=== PATIENT | male | born 2000 | race Caucasian/White ===

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

== ENCOUNTER 2023-06-22 17:47 | Inpatient (IN) | payer MEDICAID, OTHER ==
[~2023-06-22] VITALS: Ht 172.7 cm; Wt 57.8 kg
[~2023-06-22 17:47] MED LIST changes: +ARIP10TA32 PO; -ARIP1TAB PO; +FLUT50SP17; -FLUTISP; -LORA-243; +LORA-243 PO
[2023-06-22 19:15] LABS: BASO # 0.1 10^3/uL (0.0-0.2); BASO % 0.5 % (0.0-1.0); EOS % 0.2 % (0.0-3.0); HEMATOCRIT 45.6 % (42.0-52.0); HEMOGLOBIN 15.4 g/dl (13.5-17.5); LYMPH # 1.7 10^3/uL (1.5-5.0); LYMPH % 17.5 % (24.0-44.0); MEAN CORPUSCULAR HEMOGLOBIN 30.8 pg (27.0-33.0); MEAN CORPUSCULAR HGB CONC 33.8 g/dl (32.0-36.5); MEAN CORPUSCULAR VOLUME 91.2 fl (80.0-96.0); MONO # 0.6 10^3/uL (0.0-0.8); MONO % 6.4 % (2.0-8.0); NEUTROPHILS # 7.4 10^3/uL (1.5-8.5); NEUTROPHILS % 75.2 % (36.0-66.0); PLATELET COUNT, AUTOMATED 235 10^3/uL (150-450); WHITE BLOOD COUNT 9.8 10^3/uL (4.0-10.0)
[2023-06-22 19:42] LABS: LIPASE 38 U/L (12-53)
[2023-06-22 19:45] LABS: ALBUMIN 4.5 G/DL (3.2-5.2); ALKALINE PHOSPHATASE 80 U/L (46-116); ALT/SGPT 25 U/L (7.0-40); AST/SGOT 16 U/L (<34); BILIRUBIN,DIRECT 0.3 MG/DL (<0.4); BILIRUBIN,TOTAL 0.9 MG/DL (0.3-1.2); BLOOD UREA NITROGEN 15 MG/DL (9-23); CALCIUM LEVEL 9.8 MG/DL (8.5-10.1); CARBON DIOXIDE LEVEL 32 MMOL/L (20-31); CHLORIDE LEVEL 100 MMOL/L (98-107); CREATININE FOR GFR 0.77 MG/DL (0.70-1.30); GLOMERULAR FILTRATION RATE > 60.0 (>60); GLUCOSE, FASTING 85 MG/DL (60-100); POTASSIUM SERUM 4.1 MMOL/L (3.5-5.1); SODIUM LEVEL 138 MMOL/L (136-145); TOTAL PROTEIN 8.2 G/DL (5.7-8.2)
[2023-06-22] MEDS ORDERED: ISOVUE-370 76% 100ML VIAL As Ordered ONE (23:28)
[2023-06-22 23:59] LABS: AMPHETAMINES LEVEL URINE NEGATIVE (NEGATIVE); BARBITURATES URINE NEGATIVE (NEGATIVE); METHADONE URINE NEGATIVE (NEGATIVE); OPIATES URINE NEGATIVE (NEGATIVE); PHENCYCLIDINE URINE NEGATIVE (NEGATIVE)
[2023-06-23 00:01] LABS: BENZODIAZEPINES URINE NEGATIVE (NEGATIVE); COCAINE METABOLITE URINE NEGATIVE (NEGATIVE)
[2023-06-23 00:02] LABS: ETHYL ALCOHOL (ETHANOL) < 0.003 % (0.000-0.010)
[2023-06-23 00:04] LABS: ACETAMINOPHEN LEVEL < 2.0 UG/ML (10.0-20.0); SALICYLATE LEVEL < 3.0 MG/DL (<30)
[2023-06-23 00:04] LABS: CANNABINOIDS URINE POSITIVE (NEGATIVE)
[2023-06-23 00:06] LABS: THYROID STIMULATING HORMONE 1.287 uIU/ML (0.55-4.78)
[2023-06-23] MEDS ORDERED: IBUPROFEN 400MG TAB PO PRN (09:10)
[2023-06-23] MEDS ORDERED: MOM 30ML SUSPENSION UDC PO PRN (09:10)
[2023-06-23] MEDS ORDERED: diphenhydrAMINE 25MG CAP PO PRN (09:10)
[2023-06-23] MEDS ORDERED: traZODone 50 MG TAB PO PRN (09:10)
[2023-06-23] MEDS ORDERED: MAALOX 30 ML SUSP *UDC PO PRN (09:10)
[2023-06-23] MEDS ORDERED: ACETAMINOPHEN TAB 650MG DOSE (2X325MG) PO PRN (09:10)
[2023-06-23 12:05] VITALS: BP 112/67; TEMP 97.7; O2SAT 98
[2023-06-23] MEDS ORDERED: ONDA4TAB6 SL (15:59)
[2023-06-23] MEDS ORDERED: PANT40TA29 PO (15:59)
[2023-06-23] MEDS ORDERED: HOME MED LIST COMPLETE! XX SCH (16:00)
[2023-06-24] MEDS: PANTOPRAZOLE 40MG TAB (PROTONIX) PO SCH (09:00)
[2023-06-24] MEDS ORDERED: LORATADINE 10 MG TAB PO PRN (09:00)
[2023-06-24 18:25] VITALS: BP 105/60; TEMP 97.6; O2SAT 100
[2023-06-25] MEDS: PANTOPRAZOLE 40MG TAB (PROTONIX) PO SCH (09:00)
[2023-06-25 18:14] VITALS: BP 108/56; TEMP 98.4; O2SAT 100
[2023-06-25] MEDS ORDERED: ONDANSETRON 4MG TAB PO PRN (19:50)
[2023-06-25] MEDS: ONDANSETRON 4MG ORAL DISINTEGRATING TAB SL PRN ×2 (21:07→21:19)
[2023-06-26 06:41] VITALS: BP 91/53; TEMP 97.4; O2SAT 100
[2023-06-26] MEDS: PANTOPRAZOLE 40MG TAB (PROTONIX) PO SCH (09:00)
[2023-06-26 12:05] LABS: MEAN CORPUSCULAR HEMOGLOBIN 30.8 pg (27.0-33.0); MEAN CORPUSCULAR VOLUME 90.4 fl (80.0-96.0); PLATELET COUNT, AUTOMATED 191 10^3/uL (150-450); WHITE BLOOD COUNT 6.2 10^3/uL (4.0-10.0)
[2023-06-26 12:27] LABS: LIPASE 55 U/L (12-53)
[2023-06-26 12:29] LABS: ALBUMIN 4.4 G/DL (3.2-5.2); ALKALINE PHOSPHATASE 83 U/L (46-116); ALT/SGPT 19 U/L (7.0-40); AST/SGOT 12 U/L (<34); BILIRUBIN,DIRECT 0.9 MG/DL (<0.4); BILIRUBIN,TOTAL 2.8 MG/DL (0.3-1.2); BLOOD UREA NITROGEN 14 MG/DL (9-23); CALCIUM LEVEL 9.9 MG/DL (8.5-10.1); CARBON DIOXIDE LEVEL 31 MMOL/L (20-31); CHLORIDE LEVEL 100 MMOL/L (98-107); CREATININE FOR GFR 0.91 MG/DL (0.70-1.30); GLOMERULAR FILTRATION RATE > 60.0 (>60); GLUCOSE, FASTING 95 MG/DL (60-100); POTASSIUM SERUM 4.3 MMOL/L (3.5-5.1); SODIUM LEVEL 139 MMOL/L (136-145); TOTAL PROTEIN 8.1 G/DL (5.7-8.2)
== END 2023-06-26 18:13 | disposition home or self-care (01) | DRG 754 ==
LOC: M ED 17:47 → M ED INP 06-23 09:08 → M PSY 06-23 11:52
PROVIDERS: ADMIT Psychiatry & Neurology Psychiatry; ATTEND Student in an Organized Health Care Education/Training Program
DX: F32.A Depression, unspecified (principal); R45.851 Suicidal ideations; F41.9 Anxiety disorder, unspecified; Z79.899 Other long term (current) drug therapy; K21.9 Gastro-esophageal reflux disease without esophagitis

== ENCOUNTER → 2024-01-07 | Outpatient (CLI) | payer OTHER ==
[~2024-01-07] MED LIST changes: -FLUT50SP17; +FLUTISP; +ONDA4TAB6 SL; +PANT40TA29 PO
== END ==
LOC: M LAB 12:33
PROVIDERS: ATTEND Family Medicine Addiction Medicine
DX: M25.561 Pain in right knee (principal); M25.562 Pain in left knee; M41.9 Scoliosis, unspecified

== ENCOUNTER 2024-01-17 14:35 | Emergency (ER) | payer OTHER | END 2024-01-17 15:54 | disposition left against medical advice (07) | LOC: M ED 14:35 → EDBD 14:35 → M ED 15:54 | DX: Z53.21 Procedure and treatment not carried out due to patient leaving prior to being seen by health care provider (principal) ==

== ENCOUNTER 2024-03-06 09:29 | Emergency (ER) | payer OTHER ==
[~2024-03-06] VITALS: Ht 175.3 cm; Wt 63.6 kg
[2024-03-06 11:12] VITALS: BP 113/63; TEMP 96.9; O2SAT 98
[2024-03-06] MEDS ORDERED: IBUP-1022 PO (11:19)
== END 2024-03-06 11:28 | disposition home or self-care (01) ==
LOC: M ED 09:29
DX: G89.4 Chronic pain syndrome (principal); F17.210 Nicotine dependence, cigarettes, uncomplicated; Z79.1 Long term (current) use of non-steroidal anti-inflammatories (NSAID)

== ENCOUNTER 2024-06-08 00:42 | Emergency (ER) | payer OTHER ==
[~2024-06-08] VITALS: Ht 175.3 cm; Wt 65.0 kg
[~2024-06-08 00:42] MED LIST changes: +IBUP-1022 PO; +ONDA-282 SL; -ONDA4TAB6 SL
[2024-06-08 00:47] VITALS: BP 118/63; TEMP 97.7; O2SAT 97
== END 2024-06-08 01:37 | disposition left against medical advice (07) ==
LOC: EDBD 00:42 → M ED 00:42
DX: Z53.21 Procedure and treatment not carried out due to patient leaving prior to being seen by health care provider (principal)

== ENCOUNTER 2024-07-09 12:21 | Outpatient (RCR) | payer OTHER | END 2024-07-12 | LOC: M PT 12:21 | PROVIDERS: ATTEND Family Medicine Addiction Medicine | DX: M54.50 Low back pain, unspecified (principal) ==

== ENCOUNTER 2024-08-06 13:41 | Outpatient (RCR) | payer OTHER ==
[~2024-08-06 13:41] MED LIST changes: -ARIP10TA32 PO; +ARIP10TA63 PO
== END 2024-08-11 ==
LOC: M PT 13:41
PROVIDERS: ATTEND Family Medicine Addiction Medicine
DX: M54.50 Low back pain, unspecified (principal)

== ENCOUNTER → 2024-08-13 | Outpatient (REF) | LOC: M PLAIMG 10:14 | PROVIDERS: ATTEND Internal Medicine | DX: M54.50 Low back pain, unspecified (principal); M54.6 Pain in thoracic spine ==

== ENCOUNTER 2024-08-20 13:42 | Outpatient (RCR) | payer OTHER | END 2024-09-11 | LOC: M PT 13:42 | PROVIDERS: ATTEND Family Medicine Addiction Medicine | DX: M54.50 Low back pain, unspecified (principal) ==

== ENCOUNTER 2024-08-27 14:33 | Emergency (ER) | payer OTHER ==
[~2024-08-27] VITALS: Ht 175.3 cm; Wt 59.7 kg
[2024-08-27 15:35] LABS: HEMATOCRIT 48.1 % (42.0-52.0); HEMOGLOBIN 16.3 g/dl (13.5-17.5); MEAN CORPUSCULAR HEMOGLOBIN 31.1 pg (27.0-33.0); MEAN CORPUSCULAR HGB CONC 33.9 g/dl (32.0-36.5); MEAN CORPUSCULAR VOLUME 91.8 fl (80.0-96.0); PLATELET COUNT, AUTOMATED 206 10^3/uL (150-450); RED BLOOD COUNT 5.24 10^6/uL (4.30-6.10); WHITE BLOOD COUNT 8.2 10^3/uL (4.0-10.0)
[2024-08-27 15:52] LABS: AMPHETAMINES LEVEL URINE NEGATIVE (NEGATIVE); BARBITURATES URINE NEGATIVE (NEGATIVE); BENZODIAZEPINES URINE NEGATIVE (NEGATIVE); COCAINE METABOLITE URINE NEGATIVE (NEGATIVE); METHADONE URINE NEGATIVE (NEGATIVE); OPIATES URINE NEGATIVE (NEGATIVE); PHENCYCLIDINE URINE NEGATIVE (NEGATIVE)
[2024-08-27 15:54] LABS: ETHYL ALCOHOL (ETHANOL) < 0.003 % (0.000-0.010)
[2024-08-27 15:55] LABS: CANNABINOIDS URINE POSITIVE (NEGATIVE)
[2024-08-27 15:56] LABS: ALBUMIN 4.4 G/DL (3.2-5.2); ALKALINE PHOSPHATASE 92 U/L (46-116); ALT/SGPT 18 U/L (7.0-40); AST/SGOT 15 U/L (<34); BILIRUBIN,DIRECT 0.4 MG/DL (<0.4); BILIRUBIN,TOTAL 1.3 MG/DL (0.3-1.2); BLOOD UREA NITROGEN 7 MG/DL (9-23); CARBON DIOXIDE LEVEL 31 MMOL/L (20-31); CHLORIDE LEVEL 106 MMOL/L (98-107); CREATININE FOR GFR 0.78 MG/DL (0.70-1.30); GLOMERULAR FILTRATION RATE > 60.0 (>60); GLUCOSE, FASTING 85 MG/DL (60-100); POTASSIUM SERUM 3.9 MMOL/L (3.5-5.1); SALICYLATE LEVEL < 3.0 MG/DL (<30); SODIUM LEVEL 139 MMOL/L (136-145); TOTAL PROTEIN 7.8 G/DL (5.7-8.2)
[2024-08-27 15:58] LABS: THYROID STIMULATING HORMONE 0.677 uIU/ML (0.55-4.78)
[2024-08-27 17:34] VITALS: BP 118/66; TEMP 97.2; O2SAT 99
== END 2024-08-27 17:37 | disposition home or self-care (01) ==
LOC: M ED 14:33
DX: F43.20 Adjustment disorder, unspecified (principal); F32.A Depression, unspecified; K21.9 Gastro-esophageal reflux disease without esophagitis; F12.10 Cannabis abuse, uncomplicated

== ENCOUNTER 2024-08-27 21:37 | Inpatient (IN) | payer OTHER ==
[~2024-08-27] VITALS: Ht 175.3 cm; Wt 67.7 kg
[2024-08-27 21:53] VITALS: BP 131/74; TEMP 98.3; O2SAT 99
[2024-08-27] MEDS ORDERED: HOME MED LIST COMPLETE! XX SCH (22:15)
[2024-08-27 22:24] LABS: HEMOGLOBIN 16.7 g/dl (13.5-17.5); MEAN CORPUSCULAR HEMOGLOBIN 30.9 pg (27.0-33.0); MEAN CORPUSCULAR HGB CONC 34.8 g/dl (32.0-36.5); MEAN CORPUSCULAR VOLUME 88.9 fl (80.0-96.0); PLATELET COUNT, AUTOMATED 233 10^3/uL (150-450); WHITE BLOOD COUNT 7.7 10^3/uL (4.0-10.0)
[2024-08-27 22:52] LABS: ETHYL ALCOHOL (ETHANOL) < 0.003 % (0.000-0.010)
[2024-08-27 22:54] LABS: ALBUMIN 4.5 G/DL (3.2-5.2); ALKALINE PHOSPHATASE 95 U/L (46-116); ALT/SGPT 19 U/L (7.0-40); AST/SGOT 16 U/L (<34); BILIRUBIN,DIRECT 0.5 MG/DL (<0.4); BILIRUBIN,TOTAL 1.5 MG/DL (0.3-1.2); BLOOD UREA NITROGEN 7 MG/DL (9-23); CALCIUM LEVEL 10.2 MG/DL (8.5-10.1); CARBON DIOXIDE LEVEL 27 MMOL/L (20-31); CHLORIDE LEVEL 107 MMOL/L (98-107); CREATININE FOR GFR 0.73 MG/DL (0.70-1.30); GLOMERULAR FILTRATION RATE > 60.0 (>60); GLUCOSE, FASTING 111 MG/DL (60-100); POTASSIUM SERUM 3.9 MMOL/L (3.5-5.1); SALICYLATE LEVEL < 3.0 MG/DL (<30); SODIUM LEVEL 138 MMOL/L (136-145); TOTAL PROTEIN 8.1 G/DL (5.7-8.2)
[2024-08-27 22:56] LABS: THYROID STIMULATING HORMONE 0.825 uIU/ML (0.55-4.78)
[2024-08-27 23:32] LABS: AMPHETAMINES LEVEL URINE NEGATIVE (NEGATIVE); BARBITURATES URINE NEGATIVE (NEGATIVE); BENZODIAZEPINES URINE NEGATIVE (NEGATIVE); COCAINE METABOLITE URINE NEGATIVE (NEGATIVE)
[2024-08-27 23:33] LABS: CANNABINOIDS URINE POSITIVE (NEGATIVE); METHADONE URINE NEGATIVE (NEGATIVE); OPIATES URINE NEGATIVE (NEGATIVE); PHENCYCLIDINE URINE NEGATIVE (NEGATIVE)
[2024-08-28] MEDS ORDERED: IBUPROFEN 400MG TAB PO PRN (01:50)
[2024-08-28] MEDS ORDERED: MOM 30ML SUSPENSION UDC PO PRN (01:50)
[2024-08-28] MEDS ORDERED: MAALOX 30 ML SUSP *UDC PO PRN (01:50)
[2024-08-28] MEDS ORDERED: traZODone 50 MG TAB PO PRN (01:50)
[2024-08-28] MEDS ORDERED: ACETAMINOPHEN 325 MG TAB PO PRN (01:50)
[2024-08-28] MEDS ORDERED: diphenhydrAMINE 25MG CAP PO PRN (01:50)
== END 2024-08-28 12:37 | disposition home or self-care (01) | DRG 753 ==
LOC: M ED 21:37 → M ED INP 08-28 01:48 → M PSY 08-28 03:30
PROVIDERS: ADMIT Psychiatry & Neurology Psychiatry; ATTEND Psychiatry & Neurology Psychiatry
DX: F39 Unspecified mood [affective] disorder (principal); F43.10 Post-traumatic stress disorder, unspecified; F90.9 Attention-deficit hyperactivity disorder, unspecified type; K21.9 Gastro-esophageal reflux disease without esophagitis

== ENCOUNTER 2024-09-28 21:05 | Emergency (ER) | payer MEDICAID, OTHER ==
[~2024-09-28] VITALS: Ht 177.2 cm; Wt 63.7 kg
[2024-09-28 21:09] VITALS: BP 119/56; TEMP 98; O2SAT 99
== END 2024-09-28 21:30 | disposition left against medical advice (07) ==
LOC: M ED 21:05
DX: Z53.21 Procedure and treatment not carried out due to patient leaving prior to being seen by health care provider (principal)

== ENCOUNTER 2024-10-05 17:35 | Emergency (ER) | payer OTHER ==
[~2024-10-05] VITALS: Ht 175.3 cm; Wt 61.8 kg
[2024-10-05] MEDS ORDERED: HYDR-3363 (17:41)
[2024-10-05] MEDS ORDERED: PARO5TAB (17:41)
[2024-10-05 18:09] LABS: BASO % 0.6 % (0.0-1.0); EOS # 0.1 10^3/uL (0.0-0.5); EOS % 1.1 % (0.0-3.0); HEMATOCRIT 44.3 % (42.0-52.0); HEMOGLOBIN 15.6 g/dl (13.5-17.5); LYMPH # 2.2 10^3/uL (1.5-5.0); LYMPH % 30.9 % (24.0-44.0); MEAN CORPUSCULAR HEMOGLOBIN 31.1 pg (27.0-33.0); MEAN CORPUSCULAR HGB CONC 35.2 g/dl (32.0-36.5); MEAN CORPUSCULAR VOLUME 88.2 fl (80.0-96.0); MONO # 0.5 10^3/uL (0.0-0.8); MONO % 7.5 % (2.0-8.0); NEUTROPHILS # 4.2 10^3/uL (1.5-8.5); NEUTROPHILS % 59.8 % (36.0-66.0); PLATELET COUNT, AUTOMATED 211 10^3/uL (150-450); RED BLOOD COUNT 5.02 10^6/uL (4.30-6.10)
[2024-10-05] MEDS ORDERED: ISOVUE-370 76% 100ML VIAL As Ordered ONE (18:37)
[2024-10-05 18:40] LABS: ALBUMIN 4.2 G/DL (3.2-5.2); BILIRUBIN,DIRECT 0.4 MG/DL (<0.4); BILIRUBIN,TOTAL 1.4 MG/DL (0.3-1.2); TOTAL PROTEIN 7.4 G/DL (5.7-8.2)
[2024-10-05 19:29] VITALS: BP 106/69; TEMP 97.3; O2SAT 99
== END 2024-10-05 20:07 | disposition home or self-care (01) ==
LOC: M ED 17:35
DX: R42 Dizziness and giddiness (principal); R10.31 Right lower quadrant pain; R10.32 Left lower quadrant pain; J45.909 Unspecified asthma, uncomplicated; K21.9 Gastro-esophageal reflux disease without esophagitis; F12.10 Cannabis abuse, uncomplicated; F10.10 Alcohol abuse, uncomplicated; Z79.899 Other long term (current) drug therapy
CPT/HCPCS: 36415; 74177; 80047; 80076; 83690; 85025; 99284; Q9967

== ENCOUNTER 2025-03-26 11:30 | Emergency (ER) | payer OTHER ==
[~2025-03-26] VITALS: Ht 175.3 cm; Wt 70.5 kg
[~2025-03-26 11:30] MED LIST changes: +HYDR-3363; +PARO5TAB
[2025-03-26 11:38] VITALS: BP 119/68; TEMP 98.7; O2SAT 100
[2025-03-27] MEDS ORDERED: DOXA1TAB42 (12:52)
[2025-03-27] MEDS ORDERED: HYDR50CA2 (12:52)
== END 2025-03-26 13:01 | disposition home or self-care (01) ==
LOC: M ED 11:30 → EDBD 11:30 → M ED 13:01
DX: S80.911A Unspecified superficial injury of right knee, initial encounter (principal); V18.0XXA Pedal cycle driver injured in noncollision transport accident in nontraffic accident, initial encounter; F32.9 Major depressive disorder, single episode, unspecified; J45.909 Unspecified asthma, uncomplicated; Y92.410 Unspecified street and highway as the place of occurrence of the external cause; Y93.55 Activity, bike riding; Y99.9 Unspecified external cause status; Z79.899 Other long term (current) drug therapy

== ENCOUNTER 2025-03-27 12:44 | Emergency (ER) | payer OTHER ==
[~2025-03-27] VITALS: Ht 175.3 cm; Wt 70.5 kg
[2025-03-27 12:45] VITALS: BP 117/70; TEMP 96.8; O2SAT 97
[2025-03-27] MEDS ORDERED: HYDR50CA2 (12:52)
[2025-03-27] MEDS ORDERED: DOXA1TAB42 (12:52)
== END 2025-03-27 14:49 | disposition left against medical advice (07) ==
LOC: M ED 12:44
DX: Z53.21 Procedure and treatment not carried out due to patient leaving prior to being seen by health care provider (principal)

== ENCOUNTER 2025-03-27 15:19 | Emergency (ER) | payer OTHER, MEDICAID ==
[~2025-03-27] VITALS: Ht 175.3 cm; Wt 70.5 kg
[~2025-03-27 15:19] MED LIST changes: +DOXA1TAB42; +HYDR50CA2
[2025-03-27 15:21] VITALS: TEMP 98.6
[2025-03-27 21:49] VITALS: O2SAT 99
[2025-03-27 22:30] VITALS: BP 109/71
== END 2025-03-27 22:55 | disposition home or self-care (01) ==
LOC: M ED 15:19
DX: R04.2 Hemoptysis (principal); F17.200 Nicotine dependence, unspecified, uncomplicated; F19.10 Other psychoactive substance abuse, uncomplicated; Z88.0 Allergy status to penicillin; Z79.899 Other long term (current) drug therapy

== ENCOUNTER 2025-05-13 02:34 | Emergency (ER) | payer MEDICAID, OTHER ==
[~2025-05-13] VITALS: Ht 175.3 cm; Wt 70.6 kg
[2025-05-13 03:19] LABS: PLATELET COUNT, AUTOMATED 258 10^3/uL (150-450)
[2025-05-13 03:49] LABS: AMPHETAMINES LEVEL URINE NEGATIVE (NEGATIVE)
[2025-05-13 03:50] LABS: BARBITURATES URINE NEGATIVE (NEGATIVE); BENZODIAZEPINES URINE NEGATIVE (NEGATIVE); COCAINE METABOLITE URINE NEGATIVE (NEGATIVE); METHADONE URINE NEGATIVE (NEGATIVE); OPIATES URINE NEGATIVE (NEGATIVE); PHENCYCLIDINE URINE NEGATIVE (NEGATIVE)
[2025-05-13 03:52] LABS: CANNABINOIDS URINE POSITIVE (NEGATIVE)
[2025-05-13 03:54] LABS: ETHYL ALCOHOL (ETHANOL) < 0.003 % (0.000-0.010)
[2025-05-13 03:56] LABS: ALT/SGPT 16 U/L (7.0-40); AST/SGOT 19 U/L (<34); CALCIUM LEVEL 9.2 MG/DL (8.5-10.1); CARBON DIOXIDE LEVEL 25 MMOL/L (20-31); CHLORIDE LEVEL 104 MMOL/L (98-107); CREATININE FOR GFR 0.80 MG/DL (0.70-1.30); GLOMERULAR FILTRATION RATE > 90.0 (>60); POTASSIUM SERUM 4.0 MMOL/L (3.5-5.1); SALICYLATE LEVEL < 3.0 MG/DL (<30); SODIUM LEVEL 141 MMOL/L (136-145)
[2025-05-13 13:42] VITALS: BP 121/74; TEMP 97.9; O2SAT 100
== END 2025-05-13 13:44 | disposition home or self-care (01) ==
LOC: M ED 02:34
DX: F32.A Depression, unspecified (principal); K21.9 Gastro-esophageal reflux disease without esophagitis; F12.10 Cannabis abuse, uncomplicated; Z88.0 Allergy status to penicillin; Z91.048 Other nonmedicinal substance allergy status; Z79.899 Other long term (current) drug therapy

== ENCOUNTER 2025-05-23 10:15 | Emergency (ER) | payer OTHER ==
[~2025-05-23] VITALS: Ht 175.3 cm; Wt 62.8 kg
[2025-05-23 13:09] VITALS: BP 114/66; TEMP 97.6; O2SAT 98
== END 2025-05-23 13:15 | disposition home or self-care (01) ==
LOC: M ED 10:15
DX: M54.6 Pain in thoracic spine (principal); M54.50 Low back pain, unspecified; M41.34 Thoracogenic scoliosis, thoracic region; F12.10 Cannabis abuse, uncomplicated; Z88.0 Allergy status to penicillin; Z91.048 Other nonmedicinal substance allergy status